=== PATIENT | male | born 2000 | race Two or more races ===

== ENCOUNTER 2023-08-14 17:04 | Emergency (ER) | payer SELFPAY ==
[~2023-08-14] VITALS: Ht 182.9 cm; Wt 79.0 kg
[2023-08-14] MEDS ORDERED: HYDROcodone-ACET 5/325MG TAB PO ONE (21:45)
[2023-08-14] MEDS ORDERED: IBUP1TAB5 PO (21:51)
[2023-08-14 22:05] VITALS: BP 135/72; PULSE 89; RESP 18; TEMP 97.8; O2SAT 100
== END 2023-08-14 22:29 | disposition home or self-care (01) ==
LOC: ER 17:04
DX: S50.12XA Contusion of left forearm, initial encounter (principal); S63.92XA Sprain of unspecified part of left wrist and hand, initial encounter; V43.52XA Car driver injured in collision with other type car in traffic accident, initial encounter; Y93.89 Activity, other specified; Y92.410 Unspecified street and highway as the place of occurrence of the external cause; Y99.8 Other external cause status
CPT/HCPCS: 73110; 73130